=== PATIENT | female | born 1960 | race Caucasian/White ===

== ENCOUNTER 2016-12-20 06:26 | Day surgery (SDC) | payer OTHER ==
[~2016-12-20] VITALS: Ht 160 cm; Wt 98.0 kg
[2016-12-20] MEDS ORDERED: SODIUM CHLORIDE 0.9% 1,000 ML IV ONE ×2 (06:41→06:45)
[2016-12-20] MEDS ORDERED: SULF20OR7 PO (07:30)
[2016-12-20] MEDS ORDERED: OXYB5 PO (07:30)
[2016-12-20] MEDS ORDERED: ASPI81 PO (07:30)
[2016-12-20] MEDS ORDERED: METO50 PO (07:30)
[2016-12-20] MEDS ORDERED: AMLO-512 PO (07:30)
[2016-12-20] MEDS ORDERED: MELO-273 PO (07:30)
[2016-12-20] MEDS ORDERED: HYDR25TA PO (07:30)
[2016-12-20] MEDS ORDERED: FentaNYL CITRATE-PF 100 MCG/2 ML VIAL ONE (07:51)
[2016-12-20] MEDS ORDERED: MIDAZOLAM HCL 2 MG/2 ML VIAL ONE (07:51)
[2016-12-20 07:52] LABS: GLUCOSE,POINT OF CARE 106 MG/DL (70-110)
[2016-12-20] MEDS ORDERED: MethylPREDNISolone SOD SUCC 125 MG/2 ML VIAL IVP ONE (08:45)
[2016-12-20] MEDS ORDERED: MethylPREDNISolone SOD SUCC 125 MG/2 ML VIAL ONE (09:26)
[2016-12-20] MEDS ORDERED: ALBUTEROL SULFATE 2.5 MG/0.5 ML NEB SOLUTION NEB ONE (16:36)
[2016-12-20] MEDS ORDERED: BENZOCAINE 20% 50 MCG/SPRAY 57 GM TP ONE (16:36)
[2016-12-20] MEDS ORDERED: LIDOCAINE HCL 2% 30 ML JELLY TP ONE (16:36)
[2016-12-20] MEDS ORDERED: LIDOCAINE HCL 4% 50 ML SOLUTION TP ONE (16:36)
[2016-12-20] MEDS ORDERED: OXYGEN THERAPY IH SCH (20:00)
== END 2016-12-20 10:35 | disposition home or self-care (01) ==
LOC: SURGERY 06:26
PROVIDERS: ATTEND Internal Medicine Critical Care Medicine
DX: J38.4 Edema of larynx (principal); B37.0 Candidal stomatitis; J45.909 Unspecified asthma, uncomplicated; K76.0 Fatty (change of) liver, not elsewhere classified; Z72.89 Other problems related to lifestyle; Z98.890 Other specified postprocedural states; Z90.710 Acquired absence of both cervix and uterus; Z87.01 Personal history of pneumonia (recurrent)
CPT/HCPCS: 31623; 31624; 71010; 82962; 87015 ×2; 87070; 87101; 87205; 87220; 88305; 88312; 93005; J2250; J2930; J3010; J7030; 88108